=== PATIENT | male | born 1935 | race Caucasian/White ===

== ENCOUNTER 2017-10-01 09:42 | Day surgery (SDC) | payer MEDICARE ==
[~2017-10-01] VITALS: Ht 182.9 cm; Wt 93.8 kg
[~2017-10-01 09:42] MED LIST: CHOL10002; LOSA50 PO; MELO7.5 PO; Metoprolol Tar100 MG PO
== END 2017-10-01 13:00 | disposition home or self-care (01) ==
LOC: ORSCSDS 09:42
PROVIDERS: Surgery
PROC: 0DBK8ZX Excision of Ascending Colon, Via Natural or Artificial Opening Endoscopic, Diagnostic (ICD-10-PCS; principal; 2017-10-01 11:30)
DX: Z85.038 Personal history of other malignant neoplasm of large intestine (principal); D12.2 Benign neoplasm of ascending colon; K64.8 Other hemorrhoids; Z86.010 Personal history of colon polyps; I10 Essential (primary) hypertension; Z87.891 Personal history of nicotine dependence
CPT/HCPCS: 88305; J7120

== ENCOUNTER 2020-08-29 07:58 | Day surgery (SDC) | payer MEDICARE | END 2020-08-29 10:14 | disposition home or self-care (01) | LOC: ORSCSDS 07:58 | PROC: 0DBL8ZX Excision of Transverse Colon, Via Natural or Artificial Opening Endoscopic, Diagnostic (ICD-10-PCS; principal; 2020-08-29) | PROC: 0DBK8ZX Excision of Ascending Colon, Via Natural or Artificial Opening Endoscopic, Diagnostic (ICD-10-PCS; principal; 2020-08-29) | DX: Z12.11 Encounter for screening for malignant neoplasm of colon (principal); Z86.010 Personal history of colon polyps; Z85.038 Personal history of other malignant neoplasm of large intestine; D12.2 Benign neoplasm of ascending colon; D12.3 Benign neoplasm of transverse colon; I10 Essential (primary) hypertension; Z87.891 Personal history of nicotine dependence; Z79.899 Other long term (current) drug therapy ==

== ENCOUNTER 2022-09-19 19:56 | Emergency (ER) | payer MEDICARE ==
[~2022-09-19] VITALS: Ht 177.8 cm; Wt 90.7 kg
[~2022-09-19 19:56] MED LIST changes: -ONDA4ODT SL; -Percocet 5-3251 EACH PO
[2022-09-19 20:01] VITALS: BP 179/83
[2022-09-19] MEDS ORDERED: ONDA4ODT SL (21:18)
[2022-09-19] MEDS ORDERED: Percocet 5-3251 EACH PO (21:18)
== END 2022-09-19 21:31 | disposition home or self-care (01) ==
LOC: ER 19:56
DX: T23.202A Burn of second degree of left hand, unspecified site, initial encounter (principal); T31.0 Burns involving less than 10% of body surface; Z23 Encounter for immunization; Z88.6 Allergy status to analgesic agent; Z91.048 Other nonmedicinal substance allergy status; Z87.891 Personal history of nicotine dependence; X04.XXXA Exposure to ignition of highly flammable material, initial encounter
CPT/HCPCS: 90471; 90714; 90715; 99283-25; A9270

== ENCOUNTER → 2022-09-19 | Outpatient (CLI) | payer MEDICARE ==
[~2022-09-19] MED LIST changes: +ACET325; +CLON.1; +LOPE2C; +ONDA4ODT SL; +Percocet 5-3251 EACH PO
[2022-09-19 13:31] LABS: BASOPHILS ABSOLUTE AUTO 0.06 K/mm3 (0.00-0.23); BASOPHILS PERCENT AUTO 1 % (0-2); EOSINOPHILS ABSOLUTE AUTO 0.16 K/mm3 (0.00-0.68); EOSINOPHILS PERCENT AUTO 3 % (0-6); Hematocrit 46.2 % (37.0-53.0); Hemoglobin 15.2 g/dL (13.5-17.5); IMMATURE GRAN ABSOLUTE AUTO 0.02 K/mm3 (0.00-0.10); IMMATURE GRAN PERCENT AUTO 0 % (0-1); LYMPHOCYTES ABSOLUTE AUTO 1.25 K/mm3 (0.84-5.20); LYMPHOCYTES PERCENT AUTO 21 % (21-46); MONOCYTES ABSOLUTE AUTO 0.41 K/mm3 (0.16-1.47); MONOCYTES PERCENT AUTO 7 % (4-13); Mean Corpuscular HGB 28.4 pg (26.0-34.0); Mean Corpuscular HGB Conc 32.9 g/dL (31.5-36.5); Mean Corpuscular Volume 86 fL (80-100); Mean Platelet Volume 10.5 fL (9.1-12.4); NEUTROPHILS ABSOLUTE AUTO 4.03 K/mm3 (1.96-9.15); NEUTROPHILS PERCENT AUTO 68 % (41-73); Platelet Count 187 K/mm3 (150-400); RDW Coefficient Variation 13.2 % (11.7-14.2); RDW Standard Deviation 41.8 fL (35.1-46.3); Red Blood Cell Count 5.35 M/mm3 (4.30-5.90); White Blood Cell Count 5.93 K/mm3 (4.00-11.30)
[2022-09-19 13:33] LABS: LDL/HDL RATIO 1.2; Very Low Density Lipoprot Chol 16 mg/dL (6-32)
[2022-09-19 13:34] LABS: Alanine Aminotransfer (ALT/SGP 33 U/L (12-78); Albumin, Blood 3.5 g/dL (3.4-5.0); Alk Phos 78 U/L (50-136); Anion Gap 4 mmol/L (6-16); Aspartate Aminotrans (AST/SGOT 17 U/L (12-37); Bilirubin, Total 1.1 mg/dL (0.1-1.0); Blood Urea Nitrogen 25 mg/dL (8-24); Bun/Creatinine Ratio 23.6 (12.0-20.0); CHOL/HDL RATIO 2.5; CO2, Blood 27 mmol/L (21-32); Calcium, Blood 8.5 mg/dL (8.5-10.1); Chloride, Blood 112 mmol/L (98-108); Cholesterol 149 mg/dL (50-200); Creatinine, Blood 1.06 mg/dL (0.60-1.20); Globulin, Blood 3.4 g/dL (2.2-4.0); Glomerular Filtration Rate 68 (60-); Glucose, Blood 95 mg/dL (70-99); HDL Cholesterol 59 mg/dL (>39); Low Density Lipoprotein Chol 74 mg/dL (0-110); Potassium, Blood 4.4 mmol/L (3.5-5.5); Sodium, Blood 143 mmol/L (136-145); Total Protein, Blood 6.9 g/dL (6.4-8.2); Triglycerides 82 mg/dL (30-160)
== END ==
LOC: LAB SHORT 10:00 → LAB 10:00
PROVIDERS: Physician Assistant
DX: E78.5 Hyperlipidemia, unspecified (principal); I10 Essential (primary) hypertension
CPT/HCPCS: 80053; 80061; 85025

== ENCOUNTER 2023-09-29 06:58 | Day surgery (SDC) | payer MEDICARE ==
[~2023-09-29] VITALS: Ht 182.9 cm; Wt 90.5 kg
[~2023-09-29 06:58] MED LIST changes: +ONDA4ODT SL; +Percocet 5-3251 EACH PO
[2023-09-29] MEDS ORDERED: propofoL 50 ML IV ONE (07:25)
[2023-09-29] MEDS ORDERED: Lactated Ringer's 1,000 ML IV ONE ×2 (07:25→08:28)
[2023-09-29] MEDS ORDERED: AMLODIPINE-OLM1 EACH (07:56)
[2023-09-29] MEDS ORDERED: VITAMIN D310 MC1 (07:56)
[2023-09-29] MEDS ORDERED: ZYRTEC10 M2 (07:56)
[2023-09-29] MEDS ORDERED: CITALOPRAM HBR10 MG (07:56)
[2023-09-29] MEDS ORDERED: B-12500 MC2 (07:57)
[2023-09-29] MEDS ORDERED: DONEPEZIL HCL10 MG (07:57)
[2023-09-29] MEDS ORDERED: DUTA.5 (08:01)
[2023-09-29] MEDS ORDERED: ELIQUIS5 M2 (08:01)
[2023-09-29] MEDS ORDERED: LOPERAMIDE212 (08:02)
[2023-09-29] MEDS ORDERED: Flonase 0.05% N16 GM (08:02)
[2023-09-29] MEDS ORDERED: TAMS.4ER (08:02)
[2023-09-29] MEDS ORDERED: MECL25 (08:02)
[2023-09-29] MEDS ORDERED: Detrol LA4 MG (08:02)
[2023-09-29 09:20] VITALS: BP 145/91
--- NOTE | 2023-09-29 10:38 | NUR ---
09/29/23 Angelica Castillo PT. DENIES ANY PAIN.
== END 2023-09-29 09:39 | disposition home or self-care (01) ==
LOC: ORSCSDS 06:58
PROVIDERS: Surgery
PROC: 0DJD8ZZ Inspection of Lower Intestinal Tract, Via Natural or Artificial Opening Endoscopic (ICD-10-PCS; principal; 2023-09-29 08:30)
DX: Z12.11 Encounter for screening for malignant neoplasm of colon (principal); Z85.038 Personal history of other malignant neoplasm of large intestine; K64.8 Other hemorrhoids; Z90.49 Acquired absence of other specified parts of digestive tract; I10 Essential (primary) hypertension; Z79.899 Other long term (current) drug therapy
CPT/HCPCS: J2704; J7120

== ENCOUNTER → 2024-08-08 | Outpatient (CLI) | payer MEDICARE ==
[~2024-08-08] MED LIST changes: +AMLODIPINE-OLM1 EACH; +B-12500 MC2; +CITALOPRAM HBR10 MG; +DONEPEZIL HCL10 MG; +DUTA.5; +Detrol LA4 MG; +ELIQUIS5 M2; +Flonase 0.05% N16 GM; +LOPERAMIDE212; +MECL25; +TAMS.4ER; +VITAMIN D310 MC1; +ZYRTEC10 M2
== END ==
LOC: LAB 15:17 → LAB SHORT 15:17
DX: R82.90 Unspecified abnormal findings in urine (principal)
CPT/HCPCS: 87077; 87086; 87186

== ENCOUNTER → 2024-12-05 | Outpatient (CLI) | payer MEDICARE | END | disposition home or self-care (01) | LOC: LAB 12:00 → LAB SHORT 12:00 | DX: R33.8 Other retention of urine (principal) | CPT/HCPCS: 87086 ==

== ENCOUNTER → 2024-12-29 | Outpatient (CLI) | payer MEDICARE | LOC: LAB SHORT 17:52 → LAB 17:52 | DX: N39.0 Urinary tract infection, site not specified (principal); A49.9 Bacterial infection, unspecified | CPT/HCPCS: 87086 ==